=== PATIENT | male | born 1985 | race Caucasian/White ===

== ENCOUNTER 2019-04-20 10:46 | Emergency (ER) | payer OTHER ==
[2019-04-20] MEDS ORDERED: Ketorolac 60 MG/2 ML SDV IM ONE (11:08)
[2019-04-20] MEDS ORDERED: Acetaminophen/HYDROcodone 325-5 MG Tab PO ONE (11:45)
[2019-04-20] MEDS ORDERED: Triamcinolone Acetonide 40 MG/ML 1 ML MDV INJECT ONE (11:46)
--- NOTE | 2019-04-20 11:53 | EDM.PDOC ---
ED HPI GENERAL MEDICAL PROBLEM - General Chief Complaint: Lower Extremity Injury/Pain Stated Complaint: R FOOT PAIN Time Seen by Provider: 04/20/19 10:55 Source of Information: Reports: Patient History Limitations: Reports: No Limitations - History of Present Illness INITIAL COMMENTS - FREE TEXT/NARRATIVE: p arrived with a markedly swollen rt great toe. This is very painful. Onset: Today, Sudden Duration: Hour(s): Location: Reports: Lower Extremity, Right Associated Symptoms: Reports: No Other Symptoms right foot Pain Score (Numeric/FACES): 10 - Related Data Allergies Allergy/AdvReac Type Severity Reaction Status Date / Time No Known Allergies Allergy Verified 04/20/19 11:01 Home Meds: Home Meds NK [No Known Home Meds] 04/20/19 [History] Past Medical History Musculoskeletal History: Reports: Gout Psychiatric History: Reports: PTSD Dermatologic History: Reports: Other (See Below) Other Dermatologic History: cyst - Past Surgical History HEENT Surgical History: Reports: Other (See Below) Other HEENT Surgeries/Procedures: wisdom teeth extraction Social & Family History - Tobacco Use Smoking Status *Q: Light Tobacco Smoker Years of Tobacco use: 16 Packs/Tins Daily: 0.1 - Caffeine Use Caffeine Use: Reports: None - Alcohol Use Days Per Week of Alcohol Use: 1 Number of Drinks Per Day: 6 Total Drinks Per Week: 6 - Recreational Drug Use Recreational Drug Use: No Review of Systems - Review of Systems Review Of Systems: See Below Constitutional: Reports: No Symptoms Eyes: Reports: No Symptoms Ears: Reports: No Symptoms Nose: Reports: No Symptoms Mouth/Throat: Reports: No Symptoms Respiratory: Reports: No Symptoms Cardiovascular: Reports: No Symptoms, Lightheadedness Genitourinary: Reports: No Symptoms Musculoskeletal: Reports: Other (painful great toe. ) Skin: Reports: No Symptoms ED EXAM, GENERAL - Physical Exam Exam: See Below Free Text/Narrative:: pt has a markedly swollen rt great toe. This started in the nite and is very uncomfortable. He has had gout in the past. Exam Limited By: No Limitations General Appearance: Alert, Anxious, Moderate Distress Extremities: Other ( rt great toe is very swollen and is red. It is very tender to touch. ) Course - Vital Signs Last Recorded V/S: Last Vital Signs Temp 36.4 C 04/20/19 11:08 Pulse 76 04/20/19 11:08 Resp 16 04/20/19 11:08 BP 182/132 H 04/20/19 11:08 Pulse Ox 95 04/20/19 11:08 - Orders/Labs/Meds Orders: Active Orders 24 hr Category Date Time Status Triamcinolone Acetonide [Kenalog-40] Med 04/20/19 11:46 Once 60 mg INJECT ASDIRECTED ONE Medication Orders Triamcinolone Acetonide (Kenalog-40) 60 mg INJECT ASDIRECTED ONE Stop: 04/20/19 11:47 Labs: Laboratory Tests 04/20/19 Range/Units 11:08 Uric Acid 9.0 H (3.5-7.2) mg/dL Meds: Medications Generic Name Dose Route Start Last Admin Trade Name Freq PRN Reason Stop Dose Admin Triamcinolone Acetonide 60 mg 04/20/19 11:46 Kenalog-40 INJECT 04/20/19 11:47 ASDIRECTED ONE Discontinued Medications Generic Name Dose Route Start Last Admin Trade Name Freq PRN Reason Stop Dose Admin Hydrocodone Bitart/Acetaminophen 1 tab 04/20/19 11:45 [place] 325-5 Mg PO 04/20/19 11:46 ONETIME ONE Ketorolac Tromethamine 60 mg 04/20/19 11:08 04/20/19 11:16 Toradol IM 04/20/19 11:09 60 mg ONETIME ONE Administration - Re-Assessments/Exams Free Text/Narrative Re-Assessment/Exam: 04/20/19 11:50 uric acid is 9. Departure - Departure Time of Disposition: 11:50 Disposition: Home, Self-Care 01 Condition: Fair Clinical Impression: Gout attack, Hyperuricemia - Discharge Information Referrals: PCP,None [Primary Care Provider] - Care Plan Goals: gout diet--low purine, cool pack to the great toe and elevate the foot, norco 5/325 q6h prn for pain #6. Predisone 10mg 2 tabs tomorrow and 1 tab daily for 5 -6 days. When this acute flare is over pt should see his provider and go on allpurinol. Sepsis Event Note - Evaluation Sepsis Screening Result: No Definite Risk - Focused Exam Vital Signs: Vital Signs Temp Pulse Resp BP Pulse Ox 04/20/19 11:08 36.4 C 76 16 182/132 H 95 04/20/19 10:59 36.4 C 76 16 182/132 H 95 Date Exam was Performed: 04/20/19 Time Exam was Performed: 11:46 - My Orders Last 24 Hours: My Active Orders 04/20/19 11:46 Triamcinolone Acetonide [Kenalog-40] 60 mg INJECT ASDIRECTED ONE - Assessment/Plan Last 24 Hours: My Active Orders 04/20/19 11:46 Triamcinolone Acetonide [Kenalog-40] 60 mg INJECT ASDIRECTED ONE
== END 2019-04-20 12:04 | disposition home or self-care (01) ==
LOC: JP.ED 10:46
DX: E79.0 Hyperuricemia without signs of inflammatory arthritis and tophaceous disease (principal); F17.210 Nicotine dependence, cigarettes, uncomplicated
CPT/HCPCS: 36415; 84550; 96372; 99283; A9270; J1885; J3301

== ENCOUNTER 2019-06-19 00:55 | Emergency (ER) | payer OTHER ==
[2019-06-19] MEDS ORDERED: Ketorolac 60 MG/2 ML SDV IM ONE (01:23)
[2019-06-19] MEDS ORDERED: Cyclobenzaprine 10 MG Tab PO ONE (01:23)
--- NOTE | 2019-06-19 01:24 | EDM.PDOC ---
ED HPI GENERAL MEDICAL PROBLEM - General Chief Complaint: Back Pain or Injury Stated Complaint: BACK PAIN Time Seen by Provider: 06/19/19 01:18 Source of Information: Reports: Patient, RN Notes Reviewed History Limitations: Reports: No Limitations - History of Present Illness INITIAL COMMENTS - FREE TEXT/NARRATIVE: 33-year-old gentleman presents emergency department today complaint of low back pain predominantly on the left side he does have a history of sciatica usually controlled with care transition manager he does go to the OR but has been unable to get good relief from his pain he had an exacerbation earlier this evening without any lifting injury no loss of bowel or bladder no fevers left back Pain Score (Numeric/FACES): 10 - Related Data Allergies Allergy/AdvReac Type Severity Reaction Status Date / Time No Known Allergies Allergy Verified 06/19/19 01:10 Home Meds: Home Meds NK [No Known Home Meds] 04/20/19 [History] Past Medical History Musculoskeletal History: Reports: Gout Psychiatric History: Reports: PTSD Dermatologic History: Reports: Other (See Below) Other Dermatologic History: cyst - Past Surgical History HEENT Surgical History: Reports: Other (See Below) Other HEENT Surgeries/Procedures: wisdom teeth extraction Social & Family History - Tobacco Use Smoking Status *Q: Current Some Day Smoker Years of Tobacco use: 17 Packs/Tins Daily: 0.1 - Caffeine Use Caffeine Use: Reports: None - Recreational Drug Use Recreational Drug Use: No ED ROS GENERAL - Review of Systems Review Of Systems: See Below GI/Abdominal: Reports: No Symptoms : Reports: No Symptoms Musculoskeletal: Reports: Back Pain Neurological: Reports: No Symptoms ED EXAM,LOWER BACK PAIN/INJURY - Physical Exam Exam: See Below Exam Limited By: No Limitations General Appearance: Alert, Mild Distress Respiratory/Chest: No Respiratory Distress Back Exam: Normal Inspection, Decreased Range of Motion, Muscle Spasm, Paraspinal Tenderness. No: CVA Tenderness (R), CVA Tenderness (L), Vertebral Tenderness Course - Vital Signs Last Recorded V/S: Last Vital Signs Temp 96.9 F 06/19/19 01:14 Pulse 83 06/19/19 01:14 Resp 20 06/19/19 01:14 BP 154/85 H 06/19/19 01:14 Pulse Ox 95 06/19/19 01:14 - Orders/Labs/Meds Meds: Medications Discontinued Medications Generic Name Dose Route Start Last Admin Trade Name Manny PRN Reason Stop Dose Admin Cyclobenzaprine HCl 10 mg 06/19/19 01:23 06/19/19 01:33 Flexeril PO 06/19/19 01:24 10 mg ONETIME ONE Administration Ketorolac Tromethamine 60 mg 06/19/19 01:23 06/19/19 01:32 Toradol IM 06/19/19 01:24 60 mg ONETIME ONE Administration Departure - Departure Time of Disposition: 01:45 Disposition: Home, Self-Care 01 Condition: Fair Clinical Impression: Low back pain Qualifiers: Chronicity: acute Back pain laterality: left Sciatica presence: with sciatica Sciatica laterality: sciatica of left side Qualified Code(s): M54.42 - Lumbago with sciatica, left side - Discharge Information Instructions: Chronic Back Pain Referrals: Kris Zabala NP [Primary Care Provider] - Forms: ED Department Discharge Additional Instructions: Use ibuprofen for baseline pain control use hydrocodone for breakthrough pain, continue to use the muscle relaxant for muscle spasm please followup with your primary care provider in 3-5 days if not better, please call return to the emergency department with worsening of symptoms., Sepsis Event Note - Evaluation Sepsis Screening Result: No Definite Risk - Focused Exam Vital Signs: Vital Signs Temp Pulse Resp BP Pulse Ox 06/19/19 01:14 96.9 F 83 20 154/85 H 95 06/19/19 01:08 96.9 F 83 20 154/85 H 95 Date Exam was Performed: 06/19/19 Time Exam was Performed: 01:44 - Assessment/Plan Plan: Assessment Acuity = acute Site and laterality = low back pain Etiology = unknown Manifestations = none Location of injury = Home Lab values = none Plan He had some relief combination Toradol Flexeril, prescription written for hydrocodone 5/325 1 tab p.o. 3 times daily PRN total #10 Flexeril 1 tab p.o. 3 times daily total number 1510 mg in size he is going to try and follow-up with chiropractor next week This note was dictated using [employer] recognition software please call with any questions on syntax or grammar.
== END 2019-06-19 01:55 | disposition home or self-care (01) ==
LOC: JP.ED 00:55
DX: M54.42 Lumbago with sciatica, left side (principal); F17.210 Nicotine dependence, cigarettes, uncomplicated
CPT/HCPCS: 96372; 99283; A9270; J1885

== ENCOUNTER 2020-04-16 06:23 | Emergency (ER) | payer OTHER ==
[2020-04-16] MEDS ORDERED: Ketorolac 60 MG/2 ML SDV IM ONE (07:05)
[2020-04-16] MEDS ORDERED: Cyclobenzaprine 10 MG Tab PO ONE (07:05)
--- NOTE | 2020-04-16 07:08 | EDM.PDOC ---
ED HPI GENERAL MEDICAL PROBLEM - General Chief Complaint: Back Pain or Injury Stated Complaint: SEVERE BACK PAIN Time Seen by Provider: 04/16/20 07:05 Source of Information: Reports: Patient, RN Notes Reviewed History Limitations: Reports: No Limitations - History of Present Illness INITIAL COMMENTS - FREE TEXT/NARRATIVE: 34-year-old gentleman presents emergency department a complaint of low back pain, he states he does have a history of chronic back pain unfortunately slept on a couch last night had difficulty getting off couch morning had difficulty getting into his car and pain is probably on the left side is no change in bowel or bladder he has not tried anything pain Lower Back Pain Score (Numeric/FACES): 10 - Related Data Allergies Allergy/AdvReac Type Severity Reaction Status Date / Time No Known Allergies Allergy Verified 04/16/20 06:39 Home Meds: Home Meds NK [No Known Home Meds] 04/20/19 [History] Past Medical History HEENT History: Reports: Allergic Rhinitis Respiratory History: Reports: Sleep Apnea Musculoskeletal History: Reports: Back Pain, Chronic, Gout Psychiatric History: Reports: ADHD, PTSD Dermatologic History: Reports: Other (See Below) Other Dermatologic History: cyst - Infectious Disease History Infectious Disease History: Reports: Chicken Pox - Past Surgical History HEENT Surgical History: Reports: Other (See Below) Other HEENT Surgeries/Procedures: wisdom teeth extraction Social & Family History - Tobacco Use Tobacco Use Status *Q: Never Tobacco User - Caffeine Use Caffeine Use: Reports: None - Recreational Drug Use Recreational Drug Use: No ED ROS GENERAL - Review of Systems Review Of Systems: See Below Constitutional: Reports: No Symptoms GI/Abdominal: Reports: No Symptoms : Reports: No Symptoms Musculoskeletal: Reports: Back Pain Neurological: Reports: No Symptoms ED EXAM,LOWER BACK PAIN/INJURY - Physical Exam Exam: See Below Exam Limited By: No Limitations General Appearance: Alert, WD/WN, No Apparent Distress Respiratory/Chest: No Respiratory Distress Back Exam: Normal Inspection, Decreased Range of Motion, Muscle Spasm, Paraspinal Tenderness (Left side). No: CVA Tenderness (R), CVA Tenderness (L), Vertebral Tenderness Course - Vital Signs Last Recorded V/S: Last Vital Signs Temp 97.8 F 04/16/20 06:48 Pulse 68 04/16/20 06:48 Resp 18 04/16/20 06:48 BP 159/102 H 04/16/20 06:48 Pulse Ox 93 L 04/16/20 06:48 - Orders/Labs/Meds Meds: Medications Discontinued Medications Generic Name Dose Route Start Last Admin Trade Name Manny PRN Reason Stop Dose Admin Cyclobenzaprine HCl 10 mg 04/16/20 07:05 04/16/20 07:11 Flexeril PO 04/16/20 07:06 10 mg ONETIME ONE Administration Ketorolac Tromethamine 60 mg 04/16/20 07:05 04/16/20 07:11 Toradol IM 04/16/20 07:06 60 mg ONETIME ONE Administration Departure - Departure Time of Disposition: 07:33 Disposition: Home, Self-Care 01 Condition: Fair Clinical Impression: Low back pain Qualifiers: Chronicity: acute Back pain laterality: left Sciatica presence: with sciatica Sciatica laterality: sciatica of left side Qualified Code(s): M54.42 - Lumbago with sciatica, left side - Discharge Information Instructions: Acute Back Pain, Adult Referrals: PCP,None [Primary Care Provider] - Forms: ED Department Discharge Additional Instructions: Continue to use naproxen or ibuprofen as needed for pain control, try the Flexeril as needed for muscle relaxant, please followup with your primary care provider in 3-5 days if not better, please call return to the emergency department with worsening of symptoms. Sepsis Event Note (ED) - Evaluation Sepsis Screening Result: No Definite Risk - Focused Exam Vital Signs: Vital Signs Temp Pulse Resp BP Pulse Ox 04/16/20 06:48 97.8 F 68 18 159/102 H 93 L 04/16/20 06:47 97.8 F 68 18 159/102 H 93 L - Assessment/Plan Plan: Assessment Acuity = acute Site and laterality = low back pain Etiology = unknown Manifestations = none Location of injury = Home Lab values = none Plan Good improvement combination Toradol Flexeril in the emergency department, prescription for Flexeril 10 mg p.o. 3 times daily as needed total #15 follow-up primary care 3 to 5 days if not better continue with NSAIDs This note was dictated using [employer] recognition software please call with any questions on syntax or grammar.
== END 2020-04-16 07:38 | disposition home or self-care (01) ==
LOC: JP.ED 06:23
DX: M54.42 Lumbago with sciatica, left side (principal)
CPT/HCPCS: 96372; 99283; A9270; J1885

== ENCOUNTER 2023-05-15 07:17 | Emergency (ER) | payer OTHER ==
[2023-05-15] MEDS ORDERED: Ketorolac 30 MG/ML SDV IM ONE (08:45)
[2023-05-15] MEDS ORDERED: predniSONE 20 MG Tab PO ONE (08:45)
== END 2023-05-15 09:12 | disposition home or self-care (01) ==
LOC: JP.ED 07:17
DX: M25.572 Pain in left ankle and joints of left foot (principal); I10 Essential (primary) hypertension
CPT/HCPCS: 96372; 99283; J1885; J7512

== ENCOUNTER 2024-10-15 10:15 | Emergency (ER) | payer OTHER | END 2024-10-15 10:34 | disposition home or self-care (01) | LOC: JP.ED 10:15 | DX: R09.81 Nasal congestion (principal); I10 Essential (primary) hypertension | CPT/HCPCS: 99283 ==